=== PATIENT | male | born 1955 | race Caucasian/White ===

== ENCOUNTER 2018-11-20 17:52 | Emergency (ER) | payer OTHER ==
[~2018-11-20] VITALS: Ht 162.6 cm; Wt 76.2 kg
[2018-11-20 18:08] VITALS: BP 156/106
--- NOTE | 2018-11-20 18:15 | NUR ---
Adrianne horne in ED - 11/20/18 at 1835 by [email or web address] PATIENT BIB [facility] TO ER BED 12.
--- NOTE | 2018-11-20 18:15 | NUR ---
PATIENT AMBULATED TO ER BED 12.
--- NOTE | 2018-11-20 18:25 | NUR ---
PT IS A 63 Y/O MALE WHO PRESENTS TO THE ED C/O VOMITING. PT STATES THAT HE HAD A BAD BOLOGNA SANDWICH X1 DAY. PT REPORTS X1 EPISODE OF VOMITING LAST NIGHT AND X1 EPISODE TODAY. PT DENIES PAIN AT THIS TIME. PT DENIES CP, SOB, REPORTS VOMITING. PT AWAKE AND ALERT, RR EVEN/UNLABORED. PT REPOSITIONED FOR COMFORT, BED IN LOWEST POSITION. ER PROVIDER NOTIFIED. WILL CONTINUE TO MONITOR. PMH: ABD SURGERY
--- NOTE | 2018-11-20 19:20 | NUR ---
ASSUMED CARE OF PT AT THIS TIME. REPORT RECIEVED FROM LIZETH NIETO
--- NOTE | 2018-11-20 19:21 | NUR ---
PT RESTING IN BED. AAOX4, GCS 15. NAD NOTED. RR EVEN/UNLABORED. PT DENIES PAIN AT THIS TIME, STATES HE FEELS NAUSEA. SKIN WARM AND DRY TO TOUCH. +CMS. CAP REFILL <3
--- NOTE | 2018-11-20 19:27 | NUR ---
Dr. Stringer evaluating patient at bedside.
--- NOTE | 2018-11-20 19:30 | NUR ---
BLOOD TAKEN TO LAB
[2018-11-20] MEDS ORDERED: NACL 0.9% 500 ML IV ONE (19:34)
[2018-11-20] MEDS ORDERED: ONDANSETRON 4 MG/2 ML VIAL IVP ONE (19:35)
[2018-11-20] MEDS ORDERED: KETOROLAC 30 MG/ML VIAL IVP ONE (19:35)
--- NOTE | 2018-11-20 20:07 | NUR ---
PT RETURN FROM CT
--- NOTE | 2018-11-20 20:37 | NUR ---
PT RESTING COMFORTABLY IN BED, PT STATES HE FEELS "ALOT BETTER." MOTHER AT THE BEDSIDE. RR EVEN/UNLABORED.NAD NOTED
[2018-11-20 21:40] LABS: BASOPHILS % (AUTO) 0.4 % (0.0-2.0); EOSINOPHILS # (AUTO) 0.1 K/uL (0-0.4); EOSINOPHILS % (AUTO) 0.6 % (0.0-4.0); HEMATOCRIT 43.5 % (36-52); HEMOGLOBIN 14.6 g/dL (12.0-18.0); LYMPHOCYTES # (AUTO) 0.5 K/uL (2.0-11.5); LYMPHOCYTES % (AUTO) 6.4 % (20.5-51.1); MEAN CORPUSCULAR HEMOGLOBIN 29 pg (27-31); MEAN CORPUSCULAR HGB CONC 34 g/dL (33-37); MEAN CORPUSCULAR VOLUME 86.5 fL (80-94); MONOCYTES # (AUTO) 0.7 K/uL (0.8-1.0); MONOCYTES % (AUTO) 9.6 % (1.7-9.3); NEUTROPHILS # (AUTO) 6.4 K/uL (1.8-7.7); PLATELET COUNT (AUTO) 300 K/uL (140-450); RED BLOOD CELL COUNT(AUTO) 5.02 MIL/uL (4.20-6.10); RED CELL DISTRIBUTION WIDTH 14.1 % (11.6-13.7); WHITE BLOOD COUNT (AUTO) 7.7 K/uL (4.8-10.8)
[2018-11-20 21:47] LABS: ANION GAP 11.4 (8-16); CARBON DIOXIDE 30.4 mmol/L (21-32); CREATININE 0.9 mg/dL (0.7-1.3); POTASSIUM 3.8 mmol/L (3.5-5.1)
[2018-11-20 21:55] LABS: ALBUMIN 4.1 g/dL (3.4-5.0); TOTAL BILIRUBIN 0.6 mg/dL (0.0-1.0)
--- NOTE | 2018-11-20 22:08 | NUR ---
PT AND MOTHER UPDATED ON POC AT THIS TIME, VERBALIZED UNDERSTANDING
[2018-11-20 22:40] VITALS: BP 126/82
== END 2018-11-20 22:40 | disposition home or self-care (01) ==
LOC: MED 17:52
DX: R11.10 Vomiting, unspecified (principal); R42 Dizziness and giddiness; R10.84 Generalized abdominal pain
CPT/HCPCS: 36415; 74176; 80053; 81002; 83690; 85025; 96361; 96374; 96375; 99284; J1885; J2405; J7030